=== PATIENT | male | born 1960 | race African-American/Black ===

== ENCOUNTER 2018-05-03 12:42 | Inpatient (IN) ==
[2018-05-03] MEDS ORDERED: ONDANSETRON 4 MG/2 ML VIAL IV STA (13:08)
[2018-05-03] MEDS ORDERED: cefTRIAXone 1,000 MG in SODIUM CHLORIDE 0.9% 100 ML IV STA (13:08)
[2018-05-03] MEDS ORDERED: metroNIDAZOLE INJ 500 MG in PREMIX 1 EACH IV STA (13:08)
[2018-05-03 13:52] LABS: Basophils % 0.2 % (0.0-0.8); Eosinophils # 0.1 10*3/uL (0.0-0.87); Eosinophils % 0.5 % (0.00-10.9); Hematocrit 30.5 VOL% (42.0-52.0); Hemoglobin 9.3 GM/DL (14.0-18.0); Immature Granulocytes % 0.4 %; Immature Granulocytes Absolute 0.04 #; Lymphocytes # 0.6 10*3/uL (1.4-4.0); Mean Corpuscular HGB Conc 30.5 GM/DL (32-36); Mean Corpuscular Hemoglobin 28 PG (27-34); Mean Corpuscular Volume 90.5 FL (87-102); Mean Platelet Volume 8.7 FL (9.6-12.0); Monocytes # 1.1 10*3/uL (0.11-0.8); Monocytes % 10.8 % (1.7-12.7); Neutrophils # 8.1 10*3/uL (1.4-7.4); Neutrophils % 82.1 % (38.7-73.9); Platelet Count 477 T/CUMM (130-400); Red Blood Count 3.37 MC/CUMM (3.8-5.5); Red Cell Distribution Width 15.1 % (9.3-17.3); White Blood Count 9.9 T/CUMM (4-12)
[2018-05-03 14:14] LABS: Alanine Aminotransferase 46 U/L (16-61); Albumin 2.5 G/DL (3.4-5.0); Alkaline Phosphatase 519 U/L (45-117); Amylase 16 U/L (25-115); Aspartate Amino Transferase 465 U/L (0-37); Blood Urea Nitrogen 14 MG/DL (7-18); Calcium 8.7 MG/DL (8.5-10.1); Glucose 82 MG/DL (74-106); Lipase < 50.0 U/L (73-393); Osmolality,Calculated 263.5 MOS/KG (273-304); Potassium 4.1 MMOL/L (3.5-5.1); Sodium 132 MMOL/L (136-145); Total Protein 7.2 G/DL (6.4-8.3); Troponin I < 0.015 NG/ML (0.00-0.045)
[2018-05-03] MEDS ORDERED: SODIUM CHLORIDE 0.9% 2,050 ML IV ONE (14:57)
[2018-05-03] MEDS ORDERED: PIPERACILLIN/TAZOBACTAM 3,375 MG in SODIUM CHLORIDE 0.9% 100 ML IV SCH (15:00)
[2018-05-03] MEDS ORDERED: VANCOMYCIN INJ 1,000 MG in SODIUM CHLORIDE 0.9% 250 ML IV SCH (15:00)
[2018-05-03 15:03] LABS: Apearance,Urine CLEAR (Clear); Bacteria,Urine Occasional /HPF (Few); Blood, Urine Negative (Negative); Glucose,Urine (UA) Negative (Negative); Hyaline Casts,Urine 8 /LPF (0-3); Ketones,Urine 5 mg/dL (Negative); Mucus,Urine Occasional /LPF (Occasional); Nitrite,Urine Negative (Negative); Protein,Urine 100 MG/DL; RBC,Urine 4 /HPF (0-4); Squamous Epithelial Cell,Urine Occasional /HPF (0-10); Urine Color Amber (Yellow); Urine Specific Gravity 1.017 (1.001-1.035); WBC,Urine 3 /HPF (0-6)
[2018-05-03 15:13] LABS: Bilirubin,Urine Small mg/dL (Negative)
[2018-05-03 15:33] LABS: Risk Ratio 15.77; Thyroid Stimulating Hormone 4.13 uIU/ml (0.358-3.74); VLDL CHOLESTEROL 33.2 MG/DL
[2018-05-03] MEDS ORDERED: cefTRIAXone 1,000 MG in SYRINGE 1 EACH IV STA (16:54)
[2018-05-03] MEDS: SODIUM CHLORIDE 0.9% 1,000 ML IV SCH (17:10)
[2018-05-03] MEDS: SIMVASTATIN 20 MG TABLET PO SCH (17:57)
[2018-05-03] MEDS: HEPARIN 5,000 UNIT/1 ML VIAL SUBCUT SCH (18:03)
[2018-05-04] MEDS: HEPARIN 5,000 UNIT/1 ML VIAL SUBCUT SCH ×2 (01:32→09:27)
[2018-05-04] MEDS: SODIUM CHLORIDE 0.9% 1,000 ML IV SCH ×3 (01:32→16:44)
[2018-05-04 05:13] LABS: Basophils % 0.3 % (0.0-0.8); Eosinophils # 0.1 10*3/uL (0.0-0.87); Eosinophils % 1.7 % (0.00-10.9); Hemoglobin 7.5 GM/DL (14.0-18.0); Immature Granulocytes % 0.4 %; Immature Granulocytes Absolute 0.03 #; Lymphocytes # 0.6 10*3/uL (1.4-4.0); Lymphocytes % 8.9 % (21.2-54.2); Mean Corpuscular Hemoglobin 28 PG (27-34); Mean Corpuscular Volume 92.6 FL (87-102); Mean Platelet Volume 8.9 FL (9.6-12.0); Monocytes # 0.9 10*3/uL (0.11-0.8); Monocytes % 12.6 % (1.7-12.7); Neutrophils # 5.5 10*3/uL (1.4-7.4); Neutrophils % 76.1 % (38.7-73.9); Platelet Count 373 T/CUMM (130-400); Red Cell Distribution Width 15.4 % (9.3-17.3); White Blood Count 7.2 T/CUMM (4-12)
[2018-05-04 05:37] LABS: Bilirubin,Total 2.2 MG/DL (0.2-1.0); Calcium 7.9 MG/DL (8.5-10.1); Potassium 4.1 MMOL/L (3.5-5.1); Total Protein 5.9 G/DL (6.4-8.3)
[2018-05-04] MEDS ORDERED: SODIUM CHLORIDE 0.9% 1,000 ML IV PRN (06:44)
[2018-05-04] MEDS ORDERED: ACETAMINOPHEN 325 MG TABLET PO SCH (07:00)
[2018-05-04] MEDS ORDERED: diphenhydrAMINE 50 MG/1 ML VIAL IV SCH (07:00)
[2018-05-04] MEDS ORDERED: FUROSEMIDE 20 MG/2 ML VIAL IV SCH (07:00)
[2018-05-04 07:44] LABS: Hematocrit 25.8 VOL% (42.0-52.0); Hemoglobin 7.7 GM/DL (14.0-18.0)
[2018-05-04] MEDS: SIMVASTATIN 20 MG TABLET PO SCH ×2 (09:27→17:45)
[2018-05-04] MEDS: PANTOPRAZOLE 40 MG TABLET PO SCH (09:27)
[2018-05-04] MEDS: MORPHINE 4 MG/1 ML VIAL IV PRN (13:43)
[2018-05-04] MEDS ORDERED: POLYETHYLENE GLYCOL POWDER 255 GM BOTTLE PO ONE (16:00)
[2018-05-04] MEDS: BISACODYL 5 MG TABLET PO SCH ×2 (16:44→21:25)
[2018-05-04] MEDS: ONDANSETRON 4 MG/2 ML VIAL IV PRN ×2 (16:49→22:51)
[2018-05-04] MEDS: cefTRIAXone 2,000 MG in SYRINGE 1 EACH IV SCH (17:50)
[2018-05-04] MEDS: METOCLOPRAMIDE 10 MG/2 ML VIAL IV SCH ×2 (17:50→23:58)
[2018-05-04 19:50] LABS: Hematocrit 32.3 VOL% (42.0-52.0); Hemoglobin 10.2 GM/DL (14.0-18.0)
[2018-05-04] MEDS ORDERED: MAGNESIUM CITRATE 300 ML BOTTLE PO ONE (21:00)
[2018-05-05] MEDS: SODIUM CHLORIDE 0.9% 1,000 ML IV SCH ×5 (02:00→21:49)
[2018-05-05 05:14] LABS: Basophils % 0.4 % (0.0-0.8); Eosinophils # 0.1 10*3/uL (0.0-0.87); Eosinophils % 0.7 % (0.00-10.9); Hematocrit 29.9 VOL% (42.0-52.0); Hemoglobin 9.5 GM/DL (14.0-18.0); Immature Granulocytes % 0.6 %; Immature Granulocytes Absolute 0.06 #; Lymphocytes # 0.7 10*3/uL (1.4-4.0); Lymphocytes % 7.2 % (21.2-54.2); Mean Corpuscular HGB Conc 31.8 GM/DL (32-36); Mean Corpuscular Hemoglobin 29 PG (27-34); Mean Corpuscular Volume 90.3 FL (87-102); Mean Platelet Volume 9.7 FL (9.6-12.0); Monocytes # 1.2 10*3/uL (0.11-0.8); Monocytes % 11.9 % (1.7-12.7); Neutrophils % 79.2 % (38.7-73.9); Platelet Count 388 T/CUMM (130-400); Red Blood Count 3.31 MC/CUMM (3.8-5.5); Red Cell Distribution Width 15.9 % (9.3-17.3); White Blood Count 10.1 T/CUMM (4-12)
[2018-05-05 05:37] LABS: Albumin 2.1 G/DL (3.4-5.0); Potassium 3.9 MMOL/L (3.5-5.1)
[2018-05-05] MEDS: BISACODYL 5 MG TABLET PO SCH (05:58)
[2018-05-05] MEDS: METOCLOPRAMIDE 10 MG/2 ML VIAL IV SCH ×4 (05:58→23:18)
[2018-05-05] MEDS ORDERED: LIDOCAINE 100 MG/5 ML SYRINGE ONE (10:00)
[2018-05-05] MEDS ORDERED: ETOMIDATE 20 MG/10 ML VIAL IV ONE (10:00)
[2018-05-05] MEDS ORDERED: PROPOFOL 200 MG/20 ML VIAL IV ONE (10:00)
[2018-05-05] MEDS: MORPHINE 4 MG/1 ML VIAL IV PRN (11:39)
[2018-05-05] MEDS: PANTOPRAZOLE 40 MG TABLET PO SCH (13:45)
[2018-05-05] MEDS: cefTRIAXone 2,000 MG in SYRINGE 1 EACH IV SCH (18:14)
[2018-05-05] MEDS: SIMVASTATIN 20 MG TABLET PO SCH (20:52)
[2018-05-06] MEDS: SODIUM CHLORIDE 0.9% 1,000 ML IV SCH ×5 (05:16→23:45)
[2018-05-06] MEDS: METOCLOPRAMIDE 10 MG/2 ML VIAL IV SCH ×3 (05:16→18:03)
[2018-05-06 05:45] LABS: Basophils % 0.3 % (0.0-0.8); Eosinophils # 0.1 10*3/uL (0.0-0.87); Eosinophils % 1.3 % (0.00-10.9); Hematocrit 26.2 VOL% (42.0-52.0); Hemoglobin 8.1 GM/DL (14.0-18.0); Immature Granulocytes % 0.7 %; Immature Granulocytes Absolute 0.07 #; Lymphocytes # 0.8 10*3/uL (1.4-4.0); Lymphocytes % 7.8 % (21.2-54.2); Mean Corpuscular HGB Conc 30.9 GM/DL (32-36); Mean Corpuscular Hemoglobin 28 PG (27-34); Mean Corpuscular Volume 91.6 FL (87-102); Mean Platelet Volume 9.4 FL (9.6-12.0); Monocytes % 10.2 % (1.7-12.7); Neutrophils % 79.7 % (38.7-73.9); Platelet Count 331 T/CUMM (130-400); Red Blood Count 2.86 MC/CUMM (3.8-5.5); White Blood Count 10.1 T/CUMM (4-12)
[2018-05-06 06:10] LABS: Albumin 1.9 G/DL (3.4-5.0); Bilirubin,Total 3.5 MG/DL (0.2-1.0); Calcium 7.9 MG/DL (8.5-10.1); Osmolality,Calculated 271.8 MOS/KG (273-304); Potassium 3.9 MMOL/L (3.5-5.1); Total Protein 5.8 G/DL (6.4-8.3)
[2018-05-06] MEDS ORDERED: SODIUM CHLORIDE 0.9% 1,000 ML IV PRN (07:20)
[2018-05-06 07:40] LABS: INR 1.2; PT Patient Result 13.5 SECS; Partial Thromboplastin Time 29.1 SECS (0-40)
[2018-05-06] MEDS ORDERED: cefOXitin 1,000 MG in SYRINGE 1 EACH IV ONE (08:00)
[2018-05-06] MEDS ORDERED: BUPIVACAINE 0.5% 50 ML VIAL ONE (08:47)
[2018-05-06] MEDS ORDERED: EPINEPHrine 1 MG/ML VIAL ONE (08:47)
[2018-05-06] MEDS: LACTATED RINGERS 1,000 ML IV SCH (09:04)
[2018-05-06] MEDS: PANTOPRAZOLE 40 MG TABLET PO SCH (09:19)
[2018-05-06] MEDS ORDERED: MICROFIBRILLAR COLLAGEN POWDER 1 GM CAN TOP ONE (10:07)
[2018-05-06] MEDS ORDERED: PROPOFOL 1,000 MG/100 ML BOTTLE IV ONE (10:43)
[2018-05-06] MEDS ORDERED: ALBUMIN 5% 12.5 GM/250 ML VIAL IV ONE (11:06)
[2018-05-06] MEDS: PROPOFOL 1,000 MG/100 ML BOTTLE IV SCH (11:10)
[2018-05-06] MEDS ORDERED: DEXTROSE 50% 25 GM/50 ML VIAL IV ONE ×2 (11:20→11:29)
[2018-05-06 11:22] LABS: Amorphous Crystals,Urine Occasional /HPF (Few); Apearance,Urine Slightly Hazy (Clear); Bacteria,Urine Occasional /HPF (Few); Bilirubin,Urine Negative (Negative); Blood, Urine Small mg/dL (Negative); Glucose,Urine (UA) Negative (Negative); Ketones,Urine 20 mg/dL (Negative); Mucus,Urine Occasional /LPF (Occasional); Nitrite,Urine Negative (Negative); Protein,Urine 30 MG/DL; Squamous Epithelial Cell,Urine Occasional /HPF (0-10); Urine Color Amber (Yellow); Urine Specific Gravity 1.015 (1.001-1.035); WBC,Urine 1 /HPF (0-6)
[2018-05-06] MEDS ORDERED: ETOMIDATE 40 MG/20 ML VIAL IV ONE (11:25)
[2018-05-06] MEDS ORDERED: MIDAZOLAM 2 MG/2 ML VIAL ONE (11:25)
[2018-05-06] MEDS ORDERED: PHENYLEPHRINE DRIP 20 MG/250 ML PREMIX IV ONE (11:25)
[2018-05-06] MEDS ORDERED: MIDAZOLAM 10 MG/2 ML VIAL ONE (11:25)
[2018-05-06] MEDS ORDERED: SEVOFLURANE 1 UNIT/15 MINUTE INH ONE (11:25)
[2018-05-06] MEDS ORDERED: fentaNYL 100 MCG/2 ML VIAL ONE (11:25)
[2018-05-06] MEDS ORDERED: LACTATED RINGERS 1,000 ML IV ONE (11:26)
[2018-05-06] MEDS ORDERED: ROCURONIUM 100 MG/10 ML VIAL IV ONE (11:26)
[2018-05-06] MEDS ORDERED: PHENYLEPHRINE 1 MG/10 ML SYRINGE IV ONE (11:26)
[2018-05-06] MEDS ORDERED: HEPARIN/NACL 0.9% 2 UNITS/ML 500 ML IV ONE (11:26)
[2018-05-06] MEDS ORDERED: SODIUM CHLORIDE 0.9% 1,000 ML IV ONE ×2 (11:26→22:33)
[2018-05-06] MEDS ORDERED: ALBUMIN 5% 12.5 GM in PREMIX 1 EACH IV ONE (11:29)
[2018-05-06 11:33] LABS: Basophils % 0.4 % (0.0-0.8); Eosinophils % 0.4 % (0.00-10.9); Hematocrit 31.3 VOL% (42.0-52.0); Hemoglobin 9.9 GM/DL (14.0-18.0); Lymphocytes # 0.7 10*3/uL (1.4-4.0); Lymphocytes % 7.1 % (21.2-54.2); Mean Corpuscular HGB Conc 31.6 GM/DL (32-36); Mean Corpuscular Hemoglobin 29 PG (27-34); Mean Platelet Volume 8.9 FL (9.6-12.0); Monocytes # 0.8 10*3/uL (0.11-0.8); Monocytes % 7.4 % (1.7-12.7); Neutrophils # 8.8 10*3/uL (1.4-7.4); Neutrophils % 83.7 % (38.7-73.9); Platelet Count 318 T/CUMM (130-400); Red Blood Count 3.44 MC/CUMM (3.8-5.5); Red Cell Distribution Width 15.9 % (9.3-17.3); White Blood Count 10.5 T/CUMM (4-12)
[2018-05-06 11:36] LABS: ABG Base Excess -10.8 MMOL/L (-2.5-2.5); ABG HCO3 15.4 MMOL/L (20-26); ABG Oxygen Saturation 99.5 % (95-100); ABG PCO2 35.1 MM HG (35-48); ABG PH 7.259 (7.35-7.45); ABG PO2 473.2 MM HG (80-95); ABG TCO2 16.4 MMOL/L (23-27)
[2018-05-06] MEDS ORDERED: PHENYLEPHRINE DRIP 40 MG/250 ML PREMIX IV PRN (11:37)
[2018-05-06 11:43] LABS: INR 1.3; PT Patient Result 13.9 SECS; Partial Thromboplastin Time 29.4 SECS (0-40)
[2018-05-06] MEDS ORDERED: PHENYLEPHRINE DRIP 40 MG/250 ML PREMIX IV ONE (11:44)
[2018-05-06 12:07] LABS: Calcium 7.5 MG/DL (8.5-10.1); Osmolality,Calculated 275.5 MOS/KG (273-304); Potassium 4.2 MMOL/L (3.5-5.1)
[2018-05-06] MEDS: cefTRIAXone 2,000 MG in SYRINGE 1 EACH IV SCH (18:05)
[2018-05-06] MEDS ORDERED: SODIUM CHLORIDE 0.9% 500 ML IV ONE (18:33)
[2018-05-06] MEDS ORDERED: fentaNYL INJ 1,250 MCG in SODIUM CHLORIDE 0.9% 225 ML IV PRN (19:12)
[2018-05-06] MEDS: SIMVASTATIN 20 MG TABLET PO SCH (21:01)
[2018-05-06] MEDS: ONDANSETRON 4 MG/2 ML VIAL IV PRN (21:02)
[2018-05-07] MEDS ORDERED: ACETAMINOPHEN 325 MG TABLET PO PRN
[2018-05-07] MEDS: METOCLOPRAMIDE 10 MG/2 ML VIAL IV SCH ×2 (00:19→06:05)
[2018-05-07 04:18] LABS: ABG HCO3 15.1 MMOL/L (20-26); ABG Oxygen Saturation 98.5 % (95-100); ABG PCO2 29.1 MM HG (35-48); ABG TCO2 12.5 MMOL/L (23-27)
[2018-05-07 05:19] LABS: Basophils % 0.3 % (0.0-0.8); Eosinophils # 0.1 10*3/uL (0.0-0.87); Eosinophils % 0.9 % (0.00-10.9); Hematocrit 34.1 VOL% (42.0-52.0); Hemoglobin 10.5 GM/DL (14.0-18.0); Immature Granulocytes % 0.6 %; Immature Granulocytes Absolute 0.09 #; Lymphocytes # 1.1 10*3/uL (1.4-4.0); Lymphocytes % 7.7 % (21.2-54.2); Mean Corpuscular HGB Conc 30.8 GM/DL (32-36); Mean Corpuscular Hemoglobin 29 PG (27-34); Mean Corpuscular Volume 92.4 FL (87-102); Mean Platelet Volume 9.7 FL (9.6-12.0); Monocytes # 1.3 10*3/uL (0.11-0.8); Neutrophils # 11.6 10*3/uL (1.4-7.4); Neutrophils % 81.5 % (38.7-73.9); Platelet Count 362 T/CUMM (130-400); Red Blood Count 3.69 MC/CUMM (3.8-5.5); Red Cell Distribution Width 17.1 % (9.3-17.3); White Blood Count 14.2 T/CUMM (4-12)
[2018-05-07 05:24] LABS: Bilirubin,Total 3.7 MG/DL (0.2-1.0); Calcium 7.8 MG/DL (8.5-10.1); Osmolality,Calculated 281.3 MOS/KG (273-304); Potassium 4.2 MMOL/L (3.5-5.1); Total Protein 5.8 G/DL (6.4-8.3)
[2018-05-07 05:25] LABS: INR 1.3; PT Patient Result 13.9 SECS; Partial Thromboplastin Time 30.6 SECS (0-40)
[2018-05-07] MEDS: SODIUM CHLORIDE 0.9% 1,000 ML IV SCH ×3 (08:03→21:30)
[2018-05-07] MEDS ORDERED: LANSOPRAZOLE ODT 30 MG TABLET PER TUBE SCH (09:00)
[2018-05-07] MEDS: LACTATED RINGERS 1,000 ML IV SCH (09:34)
[2018-05-07] MEDS: metroNIDAZOLE INJ 500 MG in PREMIX 1 EACH IV SCH ×2 (10:15→17:19)
[2018-05-07] MEDS: PANTOPRAZOLE 40 MG VIAL IV SCH ×2 (10:15→21:30)
[2018-05-07] MEDS: HYDROCORTISONE 100 MG VIAL IV SCH ×2 (11:19→18:06)
[2018-05-07] MEDS: DEXTROSE 10% 500 ML IV SCH ×2 (11:19→21:30)
[2018-05-07] MEDS: PROPOFOL 1,000 MG/100 ML BOTTLE IV SCH (12:56)
[2018-05-07] MEDS: cefTRIAXone 2,000 MG in SYRINGE 1 EACH IV SCH (17:20)
[2018-05-07] MEDS: SIMVASTATIN 20 MG TABLET PO SCH (22:15)
[2018-05-08] MEDS: MORPHINE 4 MG/1 ML VIAL IV PRN ×2 (00:40→18:02)
[2018-05-08] MEDS ORDERED: DEXTROSE 50% 25 GM/50 ML SYRINGE IV ONE (01:29)
[2018-05-08] MEDS ORDERED: INSULIN REGULAR 100 UNIT/ML ONE (01:30)
[2018-05-08] MEDS: HYDROCORTISONE 100 MG VIAL IV SCH ×3 (02:32→18:34)
[2018-05-08] MEDS: metroNIDAZOLE INJ 500 MG in PREMIX 1 EACH IV SCH ×3 (02:32→17:49)
[2018-05-08 05:54] LABS: Basophils % 0.1 % (0.0-0.8); Hematocrit 33.1 VOL% (42.0-52.0); Hemoglobin 10.5 GM/DL (14.0-18.0); Immature Granulocytes % 0.9 %; Immature Granulocytes Absolute 0.14 #; Lymphocytes # 0.6 10*3/uL (1.4-4.0); Lymphocytes % 3.7 % (21.2-54.2); Mean Corpuscular HGB Conc 31.7 GM/DL (32-36); Mean Corpuscular Hemoglobin 29 PG (27-34); Mean Corpuscular Volume 90.4 FL (87-102); Monocytes # 0.9 10*3/uL (0.11-0.8); Monocytes % 5.3 % (1.7-12.7); Neutrophils # 14.8 10*3/uL (1.4-7.4); Platelet Count 343 T/CUMM (130-400); Red Blood Count 3.66 MC/CUMM (3.8-5.5); Red Cell Distribution Width 17.2 % (9.3-17.3); White Blood Count 16.4 T/CUMM (4-12)
[2018-05-08 06:06] LABS: Potassium 4.1 MMOL/L (3.5-5.1)
[2018-05-08 06:18] LABS: Bilirubin,Direct 2.34 MG/DL (0.0-0.20); Bilirubin,Indirect 1.2 MG/DL (0.0-1.0); Bilirubin,Total 3.5 MG/DL (0.2-1.0); Total Protein 5.4 G/DL (6.4-8.3)
[2018-05-08 06:22] LABS: Lymphocytes 5 % (20-55); Segmented Neutrophils 93 % (50-85)
[2018-05-08 06:23] LABS: Hypochromasia Slight; Platelet Estimate Normal; Total Cells Counted 100
[2018-05-08] MEDS: DEXTROSE 10% 500 ML IV SCH ×2 (07:34→17:53)
[2018-05-08] MEDS: PANTOPRAZOLE 40 MG VIAL IV SCH ×2 (09:37→21:08)
[2018-05-08 11:07] LABS: Amorphous Crystals,Urine Few /HPF (Few); Bacteria,Urine Occasional /HPF (Few); Bilirubin,Urine Small mg/dL (Negative); Blood, Urine Moderate mg/dL (Negative); Glucose,Urine (UA) Negative (Negative); Hyaline Casts,Urine 1 /LPF (0-3); Ketones,Urine Negative (Negative); Mucus,Urine Occasional /LPF (Occasional); Nitrite,Urine Negative (Negative); Protein,Urine 100 MG/DL; RBC,Urine 6 /HPF (0-4); Squamous Epithelial Cell,Urine Occasional /HPF (0-10); Urine Color Amber (Yellow); Urine Specific Gravity 1.021 (1.001-1.035); WBC,Urine 8 /HPF (0-6)
[2018-05-08 11:08] LABS: Apearance,Urine Slightly Hazy (Clear)
[2018-05-08] MEDS: SODIUM CHLORIDE 0.9% 1,000 ML IV SCH (12:22)
[2018-05-08] MEDS ORDERED: traMADol 50 MG TABLET PO PRN (13:57)
[2018-05-08] MEDS: cefTRIAXone 2,000 MG in SYRINGE 1 EACH IV SCH (17:51)
[2018-05-08] MEDS: SIMVASTATIN 20 MG TABLET PO SCH (21:09)
[2018-05-09] MEDS: SODIUM CHLORIDE 0.9% 1,000 ML IV SCH ×3 (03:04→22:17)
[2018-05-09] MEDS: metroNIDAZOLE INJ 500 MG in PREMIX 1 EACH IV SCH ×3 (03:15→17:35)
[2018-05-09] MEDS: HYDROCORTISONE 100 MG VIAL IV SCH ×3 (03:15→18:45)
[2018-05-09] MEDS: DEXTROSE 10% 500 ML IV SCH ×2 (04:05→14:57)
[2018-05-09 08:16] LABS: Basophils % 0.2 % (0.0-0.8); Hematocrit 34.1 VOL% (42.0-52.0); Hemoglobin 10.9 GM/DL (14.0-18.0); Immature Granulocytes % 0.7 %; Immature Granulocytes Absolute 0.13 #; Lymphocytes # 0.5 10*3/uL (1.4-4.0); Lymphocytes % 2.8 % (21.2-54.2); Mean Corpuscular Hemoglobin 29 PG (27-34); Mean Platelet Volume 9.1 FL (9.6-12.0); Monocytes # 0.9 10*3/uL (0.11-0.8); Monocytes % 4.9 % (1.7-12.7); Neutrophils # 16.6 10*3/uL (1.4-7.4); Neutrophils % 91.4 % (38.7-73.9); Platelet Count 341 T/CUMM (130-400); Red Blood Count 3.79 MC/CUMM (3.8-5.5); Red Cell Distribution Width 17.2 % (9.3-17.3); White Blood Count 18.1 T/CUMM (4-12)
[2018-05-09 08:41] LABS: Albumin 1.8 G/DL (3.4-5.0); Bilirubin,Total 2.3 MG/DL (0.2-1.0); Potassium 3.8 MMOL/L (3.5-5.1); Total Protein 5.7 G/DL (6.4-8.3)
[2018-05-09 08:48] LABS: Lymphocytes 1 % (20-55); Segmented Neutrophils 95 % (50-85); Total Cells Counted 100
[2018-05-09 08:49] LABS: Hypochromasia 1+; Platelet Estimate Adequate
[2018-05-09] MEDS: PANTOPRAZOLE 40 MG VIAL IV SCH ×2 (09:45→20:15)
[2018-05-09] MEDS: ONDANSETRON 4 MG/2 ML VIAL IV PRN ×2 (10:28→22:33)
[2018-05-09] MEDS: cefTRIAXone 2,000 MG in SYRINGE 1 EACH IV SCH (18:40)
[2018-05-09] MEDS: SIMVASTATIN 20 MG TABLET PO SCH (20:16)
[2018-05-09] MEDS: MORPHINE 4 MG/1 ML VIAL IV PRN (22:33)
[2018-05-10] MEDS: DEXTROSE 10% 500 ML IV SCH ×3 (00:53→21:50)
[2018-05-10] MEDS: metroNIDAZOLE INJ 500 MG in PREMIX 1 EACH IV SCH ×3 (00:53→18:20)
[2018-05-10] MEDS: HYDROCORTISONE 100 MG VIAL IV SCH ×3 (03:40→18:32)
[2018-05-10] MEDS: PANTOPRAZOLE 40 MG VIAL IV SCH ×2 (09:33→21:10)
[2018-05-10] MEDS: SODIUM CHLORIDE 0.9% 1,000 ML IV SCH (11:41)
[2018-05-10] MEDS: METOCLOPRAMIDE 10 MG/2 ML VIAL IV SCH ×2 (12:01→18:30)
[2018-05-10] MEDS: cefTRIAXone 2,000 MG in SYRINGE 1 EACH IV SCH (18:19)
[2018-05-10] MEDS: SIMVASTATIN 20 MG TABLET PO SCH (21:13)
[2018-05-11] MEDS: METOCLOPRAMIDE 10 MG/2 ML VIAL IV SCH ×4 (00:55→17:31)
[2018-05-11] MEDS: metroNIDAZOLE INJ 500 MG in PREMIX 1 EACH IV SCH ×3 (00:58→17:31)
[2018-05-11] MEDS: HYDROCORTISONE 100 MG VIAL IV SCH ×3 (02:52→20:47)
[2018-05-11 05:26] LABS: Basophils % 0.2 % (0.0-0.8); Hematocrit 35.9 VOL% (42.0-52.0); Hemoglobin 11.3 GM/DL (14.0-18.0); Immature Granulocytes % 1.1 %; Immature Granulocytes Absolute 0.18 #; Lymphocytes # 0.6 10*3/uL (1.4-4.0); Lymphocytes % 3.3 % (21.2-54.2); Mean Corpuscular HGB Conc 31.5 GM/DL (32-36); Mean Corpuscular Hemoglobin 29 PG (27-34); Mean Corpuscular Volume 90.4 FL (87-102); Mean Platelet Volume 9.7 FL (9.6-12.0); Monocytes # 1.5 10*3/uL (0.11-0.8); Monocytes % 8.7 % (1.7-12.7); Neutrophils # 14.8 10*3/uL (1.4-7.4); Neutrophils % 86.7 % (38.7-73.9); Platelet Count 329 T/CUMM (130-400); Red Blood Count 3.97 MC/CUMM (3.8-5.5); Red Cell Distribution Width 17.2 % (9.3-17.3); White Blood Count 17.1 T/CUMM (4-12)
[2018-05-11 05:38] LABS: Osmolality,Calculated 275.8 MOS/KG (273-304); Potassium 3.4 MMOL/L (3.5-5.1)
[2018-05-11 05:57] LABS: Hypochromasia 1+; Lymphocytes 3 % (20-55); Ovalocytes Slight; Platelet Estimate Adequate; Segmented Neutrophils 87 % (50-85); Total Cells Counted 100
[2018-05-11] MEDS: DEXTROSE 10% 500 ML IV SCH (08:08)
[2018-05-11] MEDS: SODIUM CHLORIDE 0.9% 1,000 ML IV SCH (08:55)
[2018-05-11] MEDS: DEXTROSE 5% NACL 0.9% 1,000 ML IV SCH ×2 (09:58→17:32)
[2018-05-11] MEDS: ENOXAPARIN 40 MG/0.4 ML SYRINGE SUBCUT SCH (10:07)
[2018-05-11] MEDS: PANTOPRAZOLE 40 MG VIAL IV SCH ×2 (10:07→20:45)
[2018-05-11] MEDS: cefTRIAXone 2,000 MG in SYRINGE 1 EACH IV SCH (17:33)
[2018-05-11] MEDS: SIMVASTATIN 20 MG TABLET PO SCH (20:44)
[2018-05-12] MEDS: METOCLOPRAMIDE 10 MG/2 ML VIAL IV SCH ×2 (00:03→06:19)
[2018-05-12] MEDS: ONDANSETRON 4 MG/2 ML VIAL IV PRN (00:07)
[2018-05-12] MEDS: metroNIDAZOLE INJ 500 MG in PREMIX 1 EACH IV SCH ×3 (00:09→17:30)
[2018-05-12] MEDS: MORPHINE 4 MG/1 ML VIAL IV PRN (03:15)
[2018-05-12] MEDS: HYDROCORTISONE 100 MG VIAL IV SCH ×3 (03:17→18:33)
[2018-05-12 04:51] LABS: Hemoglobin 11.1 GM/DL (14.0-18.0); Immature Granulocytes % 0.7 %; Immature Granulocytes Absolute 0.15 #; Lymphocytes # 0.7 10*3/uL (1.4-4.0); Lymphocytes % 3.4 % (21.2-54.2); Mean Corpuscular HGB Conc 31.7 GM/DL (32-36); Mean Corpuscular Hemoglobin 28 PG (27-34); Mean Corpuscular Volume 88.8 FL (87-102); Mean Platelet Volume 9.7 FL (9.6-12.0); Monocytes # 1.6 10*3/uL (0.11-0.8); Monocytes % 7.9 % (1.7-12.7); Neutrophils # 17.7 10*3/uL (1.4-7.4); Platelet Count 387 T/CUMM (130-400); Red Blood Count 3.94 MC/CUMM (3.8-5.5); Red Cell Distribution Width 17.7 % (9.3-17.3); White Blood Count 20.1 T/CUMM (4-12)
[2018-05-12 05:13] LABS: Albumin 1.8 G/DL (3.4-5.0); Bilirubin,Total 5.3 MG/DL (0.2-1.0); Calcium 7.7 MG/DL (8.5-10.1); Osmolality,Calculated 280.5 MOS/KG (273-304); Potassium 3.7 MMOL/L (3.5-5.1); Total Protein 5.2 G/DL (6.4-8.3)
[2018-05-12 05:22] LABS: Lymphocytes 4 % (20-55); Platelet Estimate Normal; Segmented Neutrophils 86 % (50-85); Total Cells Counted 100
[2018-05-12] MEDS: DEXTROSE 5% NACL 0.9% 1,000 ML IV SCH (06:21)
[2018-05-12] MEDS: ENOXAPARIN 40 MG/0.4 ML SYRINGE SUBCUT SCH (08:29)
[2018-05-12] MEDS: PANTOPRAZOLE 40 MG VIAL IV SCH ×2 (08:30→21:10)
[2018-05-12] MEDS: METOCLOPRAMIDE 10 MG/10 ML UDCUP PO SCH ×3 (12:10→21:09)
[2018-05-12] MEDS: chlorproMAZINE 25 MG TABLET PO PRN ×2 (16:02→23:12)
[2018-05-12] MEDS: SIMVASTATIN 20 MG TABLET PO SCH (21:09)
[2018-05-13] MEDS: MORPHINE 4 MG/1 ML VIAL IV PRN (00:39)
[2018-05-13] MEDS: metroNIDAZOLE INJ 500 MG in PREMIX 1 EACH IV SCH ×3 (00:42→19:03)
[2018-05-13] MEDS: HYDROCORTISONE 100 MG VIAL IV SCH ×3 (04:00→21:58)
[2018-05-13 06:34] LABS: Basophils % 0.1 % (0.0-0.8); Hematocrit 36.7 VOL% (42.0-52.0); Hemoglobin 11.2 GM/DL (14.0-18.0); Immature Granulocytes % 1.2 %; Immature Granulocytes Absolute 0.27 #; Lymphocytes # 0.7 10*3/uL (1.4-4.0); Lymphocytes % 3.1 % (21.2-54.2); Mean Corpuscular HGB Conc 30.5 GM/DL (32-36); Mean Corpuscular Hemoglobin 28 PG (27-34); Mean Corpuscular Volume 92.4 FL (87-102); Mean Platelet Volume 10.2 FL (9.6-12.0); Monocytes # 1.8 10*3/uL (0.11-0.8); Monocytes % 8.2 % (1.7-12.7); NRBC # 0.02 10*3/uL; Neutrophils # 18.9 10*3/uL (1.4-7.4); Neutrophils % 87.4 % (38.7-73.9); Platelet Count 410 T/CUMM (130-400); Red Blood Count 3.97 MC/CUMM (3.8-5.5); Red Cell Distribution Width 18.6 % (9.3-17.3); White Blood Count 21.6 T/CUMM (4-12)
[2018-05-13 06:59] LABS: Albumin 1.6 G/DL (3.4-5.0); Bilirubin,Direct 5.24 MG/DL (0.0-0.20); Bilirubin,Indirect 0.9 MG/DL (0.0-1.0); Bilirubin,Total 6.1 MG/DL (0.2-1.0); Total Protein 5.2 G/DL (6.4-8.3)
[2018-05-13 07:01] LABS: Osmolality,Calculated 281.5 MOS/KG (273-304); Potassium 4.9 MMOL/L (3.5-5.1)
[2018-05-13 07:08] LABS: Burr Cells Slight; Hypochromasia 1+; Lymphocytes 2 % (20-55); Ovalocytes Slight; Platelet Estimate Adequate; Segmented Neutrophils 82 % (50-85); Total Cells Counted 100
[2018-05-13] MEDS: METOCLOPRAMIDE 10 MG/10 ML UDCUP PO SCH ×4 (08:11→22:07)
[2018-05-13] MEDS: chlorproMAZINE 25 MG TABLET PO PRN ×2 (08:11→22:07)
[2018-05-13] MEDS: ENOXAPARIN 40 MG/0.4 ML SYRINGE SUBCUT SCH (08:11)
[2018-05-13] MEDS: PANTOPRAZOLE 40 MG VIAL IV SCH (08:13)
[2018-05-13] MEDS: DEXTROSE 5% NACL 0.9% 1,000 ML IV SCH (08:18)
[2018-05-13] MEDS ORDERED: SODIUM CHLORIDE 0.9% 1,000 ML IV ONE ×2 (10:04→13:48)
[2018-05-13 10:41] LABS: INR 1.8; PT Patient Result 19.4 SECS
[2018-05-13] MEDS: PIPERACILLIN/TAZOBACTAM 3,375 MG in SODIUM CHLORIDE 0.9% 100 ML IV SCH ×2 (12:43→22:04)
[2018-05-13] MEDS ORDERED: SODIUM CHLORIDE 0.9% 500 ML IV ONE (13:49)
[2018-05-13] MEDS ORDERED: SODIUM CHLORIDE 0.9% 1,000 ML IV SCH (14:00)
[2018-05-13 15:08] LABS: ABG HCO3 11.2 MMOL/L (20-26); ABG Oxygen Saturation 97.4 % (95-100); ABG PH 7.271 (7.35-7.45)
[2018-05-13 15:10] LABS: ABG PCO2 16.6 MM HG (35-48)
[2018-05-13] MEDS ORDERED: HYDROCORTISONE 100 MG VIAL IV ONE (16:08)
[2018-05-13] MEDS: SODIUM BICARB INJ 100 MEQ in DEXTROSE 5% 1,000 ML IV SCH (21:57)
[2018-05-13] MEDS: SIMVASTATIN 20 MG TABLET PO SCH (22:07)
[2018-05-13] MEDS: PANTOPRAZOLE 40 MG TABLET PO SCH (22:08)
[2018-05-13 23:18] LABS: Apearance,Urine CLOUDY (Clear); Blood, Urine Small mg/dL (Negative); Glucose,Urine (UA) Negative (Negative); Hyaline Casts,Urine 7 /LPF (0-3); Ketones,Urine 5 mg/dL (Negative); Mucus,Urine Occasional /LPF (Occasional); Nitrite,Urine Negative (Negative); Protein,Urine 30 MG/DL; Squamous Epithelial Cell,Urine Occasional /HPF (0-10); Urine Color Amber (Yellow); Urine Specific Gravity 1.021 (1.001-1.035)
[2018-05-13 23:20] LABS: Bilirubin,Urine Moderate mg/dL (Negative)
[2018-05-13 23:21] LABS: Bacteria,Urine 1+ /HPF (Few); Granular Casts,Urine Occasional /LPF (0-1); RBC,Urine Trace /HPF (0-4)
[2018-05-14] MEDS: metroNIDAZOLE INJ 500 MG in PREMIX 1 EACH IV SCH ×3 (02:11→16:41)
[2018-05-14 04:48] LABS: Basophils % 0.1 % (0.0-0.8); Hematocrit 35.3 VOL% (42.0-52.0); Immature Granulocytes % 1.2 %; Immature Granulocytes Absolute 0.21 #; Lymphocytes # 0.4 10*3/uL (1.4-4.0); Lymphocytes % 2.4 % (21.2-54.2); Mean Corpuscular HGB Conc 31.2 GM/DL (32-36); Mean Corpuscular Hemoglobin 29 PG (27-34); Mean Corpuscular Volume 91.5 FL (87-102); Mean Platelet Volume 9.8 FL (9.6-12.0); Monocytes # 1.1 10*3/uL (0.11-0.8); NRBC # 0.03 10*3/uL; Neutrophils # 16.2 10*3/uL (1.4-7.4); Neutrophils % 90.3 % (38.7-73.9); Platelet Count 362 T/CUMM (130-400); Red Blood Count 3.86 MC/CUMM (3.8-5.5); Red Cell Distribution Width 18.7 % (9.3-17.3)
[2018-05-14 04:56] LABS: INR 2.5
[2018-05-14 04:58] LABS: PT Patient Result 27.3 SECS
[2018-05-14] MEDS: HYDROCORTISONE 100 MG VIAL IV SCH ×3 (05:00→20:58)
[2018-05-14] MEDS: PIPERACILLIN/TAZOBACTAM 3,375 MG in SODIUM CHLORIDE 0.9% 100 ML IV SCH ×3 (05:00→20:57)
[2018-05-14 05:29] LABS: Band Neutrophils 1 % (0-10); Lymphocytes 5 % (20-55); Platelet Estimate Adequate; Segmented Neutrophils 91 % (50-85); Total Cells Counted 100
[2018-05-14 05:33] LABS: Albumin 1.7 G/DL (3.4-5.0); Bilirubin,Total 7.5 MG/DL (0.2-1.0); Calcium 7.5 MG/DL (8.5-10.1); Osmolality,Calculated 285.8 MOS/KG (273-304); Potassium 4.8 MMOL/L (3.5-5.1); Total Protein 4.9 G/DL (6.4-8.3)
[2018-05-14] MEDS: ENOXAPARIN 40 MG/0.4 ML SYRINGE SUBCUT SCH (09:37)
[2018-05-14] MEDS: PANTOPRAZOLE 40 MG TABLET PO SCH ×2 (09:37→18:19)
[2018-05-14] MEDS: METOCLOPRAMIDE 10 MG/10 ML UDCUP PO SCH ×5 (09:37→20:57)
[2018-05-14] MEDS: SODIUM BICARB INJ 100 MEQ in DEXTROSE 5% 1,000 ML IV SCH ×2 (09:38→22:50)
[2018-05-15] MEDS: PIPERACILLIN/TAZOBACTAM 3,375 MG in SODIUM CHLORIDE 0.9% 100 ML IV SCH (04:18)
[2018-05-15] MEDS: HYDROCORTISONE 100 MG VIAL IV SCH ×3 (04:19→21:55)
[2018-05-15 05:56] LABS: Albumin 1.7 G/DL (3.4-5.0); Bilirubin,Direct 7.48 MG/DL (0.0-0.20); Bilirubin,Indirect 1.3 MG/DL (0.0-1.0); Bilirubin,Total 8.8 MG/DL (0.2-1.0); Calcium 7.5 MG/DL (8.5-10.1); Osmolality,Calculated 285.2 MOS/KG (273-304); Potassium 5.1 MMOL/L (3.5-5.1); Total Protein 5.4 G/DL (6.4-8.3)
[2018-05-15] MEDS: PANTOPRAZOLE 40 MG TABLET PO SCH ×2 (06:08→18:03)
[2018-05-15 06:53] LABS: Basophils # 0.1 10*3/uL (0.0-0.2); Basophils % 0.3 % (0.0-0.8); Hemoglobin 11.9 GM/DL (14.0-18.0); Immature Granulocytes Absolute 0.19 #; Lymphocytes # 0.5 10*3/uL (1.4-4.0); Lymphocytes % 2.4 % (21.2-54.2); Mean Corpuscular HGB Conc 31.3 GM/DL (32-36); Mean Corpuscular Hemoglobin 29 PG (27-34); Mean Corpuscular Volume 91.8 FL (87-102); Mean Platelet Volume 10.3 FL (9.6-12.0); Monocytes % 5.3 % (1.7-12.7); NRBC # 0.07 10*3/uL; Neutrophils # 17.4 10*3/uL (1.4-7.4); Platelet Count 331 T/CUMM (130-400); Red Blood Count 4.14 MC/CUMM (3.8-5.5); Red Cell Distribution Width 19.6 % (9.3-17.3); White Blood Count 19.1 T/CUMM (4-12)
[2018-05-15] MEDS: METOCLOPRAMIDE 10 MG/10 ML UDCUP PO SCH ×4 (09:05→21:54)
[2018-05-15] MEDS: ENOXAPARIN 40 MG/0.4 ML SYRINGE SUBCUT SCH (09:06)
[2018-05-15] MEDS: SODIUM BICARB INJ 100 MEQ in DEXTROSE 5% 1,000 ML IV SCH ×2 (09:07→21:58)
[2018-05-15 10:09] LABS: Band Neutrophils 2 % (0-10); Eosinophils 1 % (0-10); Hypochromasia 1+; Ovalocytes Few; Platelet Estimate Normal; Segmented Neutrophils 92 % (50-85); Total Cells Counted 100
[2018-05-15 10:10] LABS: Microcytosis 1+; Polychromasia Few
[2018-05-15] MEDS: PIPERACILLIN/TAZOBACTAM 2,250 MG in SODIUM CHLORIDE 0.9% 100 ML IV SCH ×2 (13:28→21:54)
[2018-05-16] MEDS: HYDROCORTISONE 100 MG VIAL IV SCH (04:46)
[2018-05-16] MEDS: chlorproMAZINE 25 MG TABLET PO PRN (04:47)
[2018-05-16] MEDS: PIPERACILLIN/TAZOBACTAM 2,250 MG in SODIUM CHLORIDE 0.9% 100 ML IV SCH (04:47)
[2018-05-16 06:37] LABS: Basophils # 0.1 10*3/uL (0.0-0.2); Basophils % 0.3 % (0.0-0.8); Hematocrit 32.5 VOL% (42.0-52.0); Hemoglobin 10.3 GM/DL (14.0-18.0); Immature Granulocytes % 1.4 %; Immature Granulocytes Absolute 0.36 #; Lymphocytes # 0.6 10*3/uL (1.4-4.0); Lymphocytes % 2.2 % (21.2-54.2); Mean Corpuscular HGB Conc 31.7 GM/DL (32-36); Mean Corpuscular Hemoglobin 29 PG (27-34); Mean Corpuscular Volume 92.1 FL (87-102); Mean Platelet Volume 10.2 FL (9.6-12.0); Monocytes # 1.5 10*3/uL (0.11-0.8); Monocytes % 5.7 % (1.7-12.7); NRBC # 0.09 10*3/uL; Neutrophils # 23.8 10*3/uL (1.4-7.4); Neutrophils % 90.4 % (38.7-73.9); Platelet Count 290 T/CUMM (130-400); Red Blood Count 3.53 MC/CUMM (3.8-5.5); Red Cell Distribution Width 19.7 % (9.3-17.3); White Blood Count 26.3 T/CUMM (4-12)
[2018-05-16 06:56] LABS: Band Neutrophils 4 % (0-10); Hypochromasia 1+; Lymphocytes 3 % (20-55); Polychromasia Slight; Segmented Neutrophils 86 % (50-85); Total Cells Counted 100
[2018-05-16 06:57] LABS: Anisocytosis 1+; Microcytosis 1+
[2018-05-16 06:58] LABS: Platelet Estimate Normal
[2018-05-16 07:19] LABS: Alanine Aminotransferase 168 U/L (16-61); Albumin 1.5 G/DL (3.4-5.0); Alkaline Phosphatase 1003 U/L (45-117); Aspartate Amino Transferase 1116 U/L (0-37); Bilirubin,Indirect 1.6 MG/DL (0.0-1.0); Blood Urea Nitrogen 73 MG/DL (7-18); Calcium 6.9 MG/DL (8.5-10.1); Glucose 100 MG/DL (74-106); Osmolality,Calculated 287.4 MOS/KG (273-304); Potassium 5.3 MMOL/L (3.5-5.1); Sodium 133 MMOL/L (136-145)
[2018-05-16] MEDS: PANTOPRAZOLE 40 MG TABLET PO SCH ×2 (08:18→18:49)
[2018-05-16] MEDS: ENOXAPARIN 40 MG/0.4 ML SYRINGE SUBCUT SCH (08:18)
[2018-05-16] MEDS: SODIUM BICARB INJ 100 MEQ in DEXTROSE 5% 1,000 ML IV SCH (08:30)
[2018-05-16] MEDS: METOCLOPRAMIDE 10 MG/10 ML UDCUP PO SCH (08:57)
[2018-05-16] MEDS: MORPHINE 4 MG/1 ML VIAL IV PRN ×2 (11:00→17:12)
[2018-05-16 19:45] VITALS: BP 75/35
== END 2018-05-17 00:56 | disposition expired | DRG 329 ==
LOC: EDUNIT# → EDBD → N.ED 12:42 → N.EDINP 15:01 → SUATTDRO 15:01 → N.5E 19:21 → N.CC 05-06 11:39 → N.4E 05-10 22:35 → N.ICU 05-13 16:10 → N.4E 05-13 16:59
PROVIDERS: ADMIT Internal Medicine; ATTEND Internal Medicine